=== PATIENT | female | born 1950 | race Caucasian/White ===

== ENCOUNTER 2022-11-28 07:28 | Day surgery (SDC) | payer OTHER ==
[2022-11-28] MEDS ORDERED: Ringers Lactate 1,000 ML IV ONE (08:04)
[2022-11-28] MEDS ORDERED: propofoL 200 MG/20 ML VIAL IV ONE ×2 (08:31→09:37)
[2022-11-28] MEDS ORDERED: LIDOCAINE 1% MPF 5 ML VIAL ONE (08:31)
[2022-11-28 11:29] VITALS: TEMP 97.6
[2022-11-28 11:30] VITALS: BP 100/59; O2SAT 100
== END 2022-11-28 10:27 | disposition home or self-care (01) ==
LOC: OR 07:28
PROVIDERS: ATTEND Surgery
PROC: 0DBN8ZX Excision of Sigmoid Colon, Via Natural or Artificial Opening Endoscopic, Diagnostic (ICD-10-PCS; 2022-11-28)
PROC: 0DBK8ZX Excision of Ascending Colon, Via Natural or Artificial Opening Endoscopic, Diagnostic (ICD-10-PCS; principal; 2022-11-28 08:30)
DX: R19.5 Other fecal abnormalities (principal); K64.4 Residual hemorrhoidal skin tags; K64.8 Other hemorrhoids; K57.30 Diverticulosis of large intestine without perforation or abscess without bleeding; D12.2 Benign neoplasm of ascending colon; Z80.0 Family history of malignant neoplasm of digestive organs; Z86.010 Personal history of colon polyps
CPT/HCPCS: 88305; 45384; J2704 ×2; J2001; J7120